=== PATIENT | female | born 1965 | race Two or more races ===

== ENCOUNTER 2022-02-18 06:50 | Outpatient (CLI) | payer OTHER | END 2022-02-18 06:51 | disposition home or self-care (01) | LOC: LAB 06:50 | PROVIDERS: ATTEND Obstetrics & Gynecology Gynecology | DX: D64.9 Anemia, unspecified (principal); E03.9 Hypothyroidism, unspecified; E55.9 Vitamin D deficiency, unspecified; E78.5 Hyperlipidemia, unspecified; Z12.11 Encounter for screening for malignant neoplasm of colon; N39.0 Urinary tract infection, site not specified ==

== ENCOUNTER 2022-02-18 07:25 | Outpatient (CLI) | payer OTHER | END 2022-02-18 07:30 | disposition home or self-care (01) | LOC: MAMO-SONO 07:25 | PROVIDERS: ATTEND Obstetrics & Gynecology Gynecology | DX: Z12.31 Encounter for screening mammogram for malignant neoplasm of breast (principal); N60.11 Diffuse cystic mastopathy of right breast; N60.12 Diffuse cystic mastopathy of left breast ==

== ENCOUNTER 2023-07-31 07:27 | Outpatient (CLI) | payer OTHER | END 2023-07-31 07:33 | disposition home or self-care (01) | LOC: RAD 07:27 | PROVIDERS: ATTEND Chiropractor Sports Physician | DX: M79.641 Pain in right hand (principal); M79.642 Pain in left hand ==

== ENCOUNTER → 2023-07-31 07:37 | Outpatient (CLI) | payer OTHER ==
[2023-07-31 08:40] LABS: URINE APPEARANCE Cloudy; URINE BILIRRUBIN Negative (NEGATIVE); URINE BLOOD Small; URINE COLOR Yellow; URINE GLUCOSE Negative (NEGATIVE); URINE LEUKOCYTE Negative; URINE NITRATE Negative; URINE PROTEIN Negative (NEGATIVE); URINE UROBILINOGEN 0.2 E.U./dl
[2023-07-31 08:42] LABS: URINE EPITHELIAL CELLS 68.7 uL (0.0-38.8); URINE WBC 35.8 uL (0.0-23.2)
[2023-07-31 08:45] LABS: HEMATOCRIT 38.9 % (36.0-45.00); HEMOGLOBIN 13.1 g/dL (12.0-15.00); MEAN CELL VOLUME 85.1 fL (80.00-100.00); MEAN CORPUSCULAR HEMOGLOBIN 28.6 pg (27.00-32.0); MEAN CORPUSCULAR HGB CONC 33.7 g/dl (32.0-36.0); PLATELET COUNT 292 K/uL (150-450); RED BLOOD COUNT 4.57 M/uL (4.00-6.00); RED CELL DISTRIBUTION WIDTH 13.8 % (11.5-14.5)
[2023-07-31 11:15] LABS: ALBUMIN 3.7 gm/dL (3.4-5.0); BILIRUBIN TOTAL 0.4 mg/dL (0.3-1.2); CALCIUM 8.9 mg/dL (8.5-10.1); CHOL HDL RATIO 4.1 (0-5.0); CREATININE SERUM 0.64 mg/dL (0.55-1.02); GFR 94.98; GLOBULINA 3.5 G/DL (2.4-3.5); POTASSIUM 4.22 mEq/L (3.5-5.1); T4 TOTAL 8.64 UG/DL (4.8-13.9); TOTAL PROTEIN 7.2 gm/dL (6.4-8.2); TSH 1.99 uIU/mL (0.358-3.74)
== END | disposition home or self-care (01) ==
LOC: LAB 07:37
PROVIDERS: ATTEND Chiropractor Sports Physician
DX: E11.9 Type 2 diabetes mellitus without complications (principal); M79.7 Fibromyalgia; M54.50 Low back pain, unspecified; E78.00 Pure hypercholesterolemia, unspecified

== ENCOUNTER 2023-08-06 07:28 | Outpatient (CLI) | payer OTHER | END 2023-08-06 07:38 | disposition home or self-care (01) | LOC: MAMO-SONO 07:28 | PROVIDERS: ATTEND Obstetrics & Gynecology | DX: M02.0 Arthropathy following intestinal bypass (principal); N63.22 Unspecified lump in the left breast, upper inner quadrant; N63.21 Unspecified lump in the left breast, upper outer quadrant ==

== ENCOUNTER 2024-03-18 07:11 | Outpatient (CLI) | payer OTHER ==
[2024-03-18 07:53] LABS: HEMATOCRIT 38.3 % (36.0-45.00); HEMOGLOBIN 12.9 g/dL (12.0-15.00); MEAN CELL VOLUME 84.7 fL (80.00-100.00); MEAN CORPUSCULAR HEMOGLOBIN 28.6 pg (27.00-32.0); MEAN CORPUSCULAR HGB CONC 33.7 g/dl (32.0-36.0); PLATELET COUNT 299 K/uL (150-450); RED BLOOD COUNT 4.52 M/uL (4.00-6.00); RED CELL DISTRIBUTION WIDTH 13.4 % (11.5-14.5)
[2024-03-18 08:00] LABS: PH,URINE 5.5 (5.0-8.0); URINE APPEARANCE Cloudy; URINE BILIRRUBIN Negative (NEGATIVE); URINE BLOOD Moderate; URINE COLOR Yellow; URINE GLUCOSE Negative (NEGATIVE); URINE KETONE Negative (NEGATIVE); URINE LEUKOCYTE Trace; URINE NITRATE Negative; URINE PROTEIN Negative (NEGATIVE); URINE UROBILINOGEN 0.2 E.U./dl
[2024-03-18 08:04] LABS: URINE BACTERIA 4190.4 uL (0.0-1933); URINE RBC 70.2 uL (0.0-20.8); URINE WBC 43.7 uL (0.0-23.2)
[2024-03-18 08:14] LABS: URINE CAST 0.61 uL (0.0-1.40)
[2024-03-18 09:01] LABS: ALBUMIN 3.4 gm/dL (3.4-5.0); BILIRUBIN TOTAL 0.44 mg/dL (0.3-1.2); CALCIUM 8.8 mg/dL (8.5-10.1); CHOL HDL RATIO 4.7 (0-5.0); CREATININE SERUM 0.6 mg/dL (0.55-1.02); GFR 101.97; GLOBULINA 3.5 G/DL (2.4-3.5); POTASSIUM 3.64 mEq/L (3.5-5.1); TOTAL PROTEIN 6.9 gm/dL (6.4-8.2); TSH 2.09 uIU/mL (0.358-3.74)
== END 2024-03-18 07:12 | disposition home or self-care (01) ==
LOC: LAB 07:11
DX: Z13.6 Encounter for screening for cardiovascular disorders (principal)

== ENCOUNTER 2024-03-29 08:07 | Outpatient (CLI) | payer OTHER | END 2024-03-29 08:18 | disposition home or self-care (01) | LOC: MAMO-SONO 08:07 | DX: N63.22 Unspecified lump in the left breast, upper inner quadrant (principal); N63.10 Unspecified lump in the right breast, unspecified quadrant ==